=== PATIENT | female | born 1960 | race Caucasian/White ===

== ENCOUNTER 2025-01-05 13:04 | Outpatient (CLI) | payer MEDICARE, BC | END 2025-01-05 13:05 | disposition home or self-care (01) | LOC: CT 13:04 | PROVIDERS: ATTEND Student in an Organized Health Care Education/Training Program | DX: Z12.2 Encounter for screening for malignant neoplasm of respiratory organs (principal); F17.211 Nicotine dependence, cigarettes, in remission; R91.1 Solitary pulmonary nodule; J98.4 Other disorders of lung; J43.9 Emphysema, unspecified; Z90.2 Acquired absence of lung [part of] | CPT/HCPCS: 71271 ==